=== PATIENT | male | born 1980 | race Caucasian/White ===

== ENCOUNTER 2018-07-08 18:51 | Emergency (ER) | payer BC, OTHER ==
[~2018-07-08 18:51] MED LIST: DIA5 PO; DIPH-741 PO; NO RTN MEDS; PAN40 PO; SUCR1ORA17 PO
--- NOTE | 2018-07-08 18:58 | ER Report ---
History and Physical Time Seen By MD: 18:58 HPI/ROS CHIEF COMPLAINT: Laceration HISTORY OF PRESENT ILLNESS: 37-year-old male patient presents to emergency room with complaint of laceration to the left index finger. Patient states that he was using a seater grinder to work in a shower when the seater grinder slipped and hit his left index finger. Patient states he did have a significant amount of bleeding and that is why he came in for evaluation. Patient denies having any numbness tingling in finger. He denies having any weakness. He states that his last tetanus shot was in 2017. REVIEW OF SYSTEMS: Respiratory: No cough, no dyspnea. Cardiovascular: No chest pain, no palpitations. Gastrointestinal: No vomiting, no abdominal pain. Musculoskeletal: No back pain. Allergies: Coded Allergies: No Known Allergies (Verified Allergy, Mild, 07/08/18) Home Meds Active Scripts Cephalexin 500 Mg Tab (KEFLEX 500 MG TAB) 500 Mg Tablet, 500 MG PO Q6H, #20 TAB Prov:DILEEP VINSON 07/08/18 Past Medical/Surgical History Patient has a past medical history of ulcer, reflux, occasional call use. Patient has a surgical history of appendectomy, soft palate surgery, tonsillectomy. Reviewed Nurses Notes: Yes Hx Smoking: No Smoking Status: Never Smoker Hx Substance Use Disorder: No Hx Alcohol Use: Yes (OCC) Constitutional Vital Sign - Last 24 Hours 07/08/18 07/08/18 07/08/18 07/08/18 18:55 18:56 19:00 19:06 Temp 98.4 Pulse 70 69 Resp 14 B/P (MAP) 133/88 (103) 133/88 112/78 (89) Pulse Ox 95 98 O2 Delivery Room Air 07/08/18 07/08/18 07/08/18 07/08/18 19:21 19:30 19:36 19:41 Pulse 70 70 70 B/P (MAP) 112/85 (94) Pulse Ox 97 99 96 07/08/18 07/08/18 07/08/18 19:56 20:00 20:11 Pulse 71 72 B/P (MAP) 118/84 (95) Pulse Ox 97 93 Physical Exam General Appearance: The patient is alert, has no immediate need for airway protection and no current signs of toxicity. Respiratory: Chest is non tender, lungs are clear to auscultation. Cardiac: regular rate and rhythm Musculoskeletal: Extremities have full range of motion and are non tender. Skin: No rashes or lesions. Patient does have a 1.5 similar laceration to the left index finger. Does go into the subcutaneous tissue. There does appear to be some injury to the extensor tendon. Patient does have good strength with extension. DIFFERENTIAL DIAGNOSIS: After history and physical exam differential diagnosis was considered for laceration, tendon injury. Medical Decision Making EKG/Imaging Imaging FINGER LEFT 2ND DIGIT COMPARISONS: None. ADDITIONAL PERTINENT HISTORY: Laceration FINDINGS: Osseous structures: Negative. Joint spaces: Negative. Surrounding soft tissues: Soft tissue irregularity overlying the PIP joint of the left index finger. No radiopaque foreign body noted. IMPRESSION: 1. Soft tissue irregularity overlying the PIP joint of the left index finger. 2. No radiopaque foreign body or bony fracture noted. Report Dictated By: Anant De La Rosa MD at 07/08/2018 7:20 PM Report E-Signed By: Anant De La Rosa MD at 07/08/2018 7:22 PM ED Course/Re-evaluation ED Course Patient was admitted and examined, history and physical were obtained. Differential diagnoses were considered. On physical exam patient does have a 1.5 cm laceration to the left index finger. Looking at the wound does appear that he has cut down to his tendon. I'm unable to ascertain at this time whether he has damage the extensor tendon or not. The finger was anesthetized, cleaned and repaired described below. Patient tolerated the repair well. We'll go ahead and discharge him home. We did place the patient in an aluminum splint. I would like him follow-up with Dr. Connell or Dr. Ramirez abdomen her bone joint. He is to return to emergency room if condition worsens. He is to monitor for signs of infection. Patient was started on antibiotics. Patient verbalized understanding and agreement with plan. Procedure: Laceration repair. Verbal consent was obtained from the patient. The 1.5 cm laceration on the left index finger was anesthetized in the usual fashion. The wound was scrubbed , draped and explored to its base with a gloved finger. There were no deep structures involved. There was exposed flexor tendon noted, I was unable to ascertain if there was a tendon injury. The wound was repaired with 4 simple interrupted sutures using 4-0 Prolene material. The wound repair was simple. The procedure was performed by myself. Decision to Disposition Date: Jul 08, 2018 Decision to Disposition Time: 19:51 Depart Departure Latest Vital Signs Vital Signs Date Time Temp Pulse Resp B/P (MAP) Pulse Ox O2 Delivery O2 Flow Rate FiO2 07/08/18 20:11 72 93 07/08/18 20:00 118/84 (95) 07/08/18 18:56 98.4 14 Room Air Impression: Primary Impression: Finger laceration involving tendon Condition: Improved Disposition: HOME OR SELF-CARE Referrals: TAMIKO CROCKETT MD (PCP) HOUSTON RAMIREZ MD, MARK MD New Scripts Cephalexin 500 Mg Tab (KEFLEX 500 MG TAB) 500 Mg Tablet 500 MG PO Q6H, #20 TAB Prov: DILEEP VINSON 07/08/18 Patient Instructions: Finger Laceration (ED) Additional Instructions: Keep wound dry for 48 hours. Follow up with Dr. Connell or Dr. Ramirez at [facility] in the next 5 days for tendon injury. Monitor for signs of infection; redness, swelling, heat, discharge, increasing pain or red streaking. Take Tylenol or Ibuprofen as needed for pain. Return to the ER with any concerns. You may change dressing as needed. Problem Qualifiers Primary Impression: Finger laceration involving tendon Encounter type: initial encounter Qualified Codes: S61.219A - Laceration without foreign body of unspecified finger without damage to nail, initial encounter DILEEP VINSON Jul 08, 2018 18:58
--- NOTE | 2018-07-08 19:25 | RADIOLOGY IMAGING REPORT ---
FACILITY: [facility] - [place] PATIENT NAME: Dante Bourne : 1980 MR: [id number] V: [id number] EXAM DATE: ORDERING PHYSICIAN: DILEEP VINSON TECHNOLOGIST: Location: [facility] Patient: Dante Bourne : 1980 Visit/Account:[id number] Date of Sevice: 07/08/2018 FINGER LEFT 2ND DIGIT COMPARISONS: None. ADDITIONAL PERTINENT HISTORY: Laceration FINDINGS: Osseous structures: Negative. Joint spaces: Negative. Surrounding soft tissues: Soft tissue irregularity overlying the PIP joint of the left index finger. No radiopaque foreign body noted. IMPRESSION: 1. Soft tissue irregularity overlying the PIP joint of the left index finger. 2. No radiopaque foreign body or bony fracture noted. Report Dictated By: Anant De La Rosa MD at 07/08/2018 7:20 PM Report E-Signed By: Anant De La Rosa MD at 07/08/2018 7:22 PM [id number]
[2018-07-08] MEDS ORDERED: CEPH500T7 PO (19:50)
[2018-07-08] MEDS ORDERED: CEPHALEXIN 500 MG CAP TH 2 CAP/BOTTLE PO ONE (19:55)
[2018-07-08 20:00] VITALS: BP 118/84
== END 2018-07-08 20:20 | disposition home or self-care (01) ==
LOC: ER 18:58
DX: S61.211A Laceration without foreign body of left index finger without damage to nail, initial encounter (principal)
CPT/HCPCS: 99283